=== PATIENT | male | born 1970 | race Two or more races ===

== ENCOUNTER 2018-01-13 16:07 | Emergency (ER) | payer OTHER ==
[~2018-01-13] VITALS: Ht 175.3 cm; Wt 108.9 kg
[2018-01-13 16:15] VITALS: BP 137/68; Ht 175.3 cm; Wt 108.9 kg
== END 2018-01-13 19:02 | disposition home or self-care (01) ==
LOC: ED 16:07
DX: S01.91XA Laceration without foreign body of unspecified part of head, initial encounter (principal); W22.8XXA Striking against or struck by other objects, initial encounter; Y93.89 Activity, other specified; Y92.89 Other specified places as the place of occurrence of the external cause; Y99.8 Other external cause status
CPT/HCPCS: 90715; J2001

== ENCOUNTER 2018-01-22 16:45 | Emergency (ER) | payer OTHER ==
[~2018-01-22] VITALS: Ht 172.7 cm; Wt 107.0 kg
[2018-01-22 16:52] VITALS: Ht 172.7 cm; Wt 107.0 kg
[2018-01-22 17:21] VITALS: BP 113/62
== END 2018-01-22 17:21 | disposition home or self-care (01) ==
LOC: ED 16:45
DX: S01.01XD Laceration without foreign body of scalp, subsequent encounter (principal); X58.XXXD Exposure to other specified factors, subsequent encounter